=== PATIENT | male | born 1990 | race Caucasian/White ===

== ENCOUNTER 2018-12-23 10:49 | Emergency (ER) | payer OTHER ==
[~2018-12-23] VITALS: Ht 180.3 cm; Wt 132.0 kg
== END 2018-12-23 14:20 | disposition home or self-care (01) ==
LOC: ER 10:49
DX: J11.1 Influenza due to unidentified influenza virus with other respiratory manifestations (principal)

== ENCOUNTER → 2019-08-04 | Emergency (ER) | payer OTHER ==
[~2019-08-04] VITALS: Ht 180.3 cm; Wt 130.2 kg
== END | disposition left against medical advice (07) ==
LOC: ER 15:57
DX: B34.9 Viral infection, unspecified (principal)